=== PATIENT | male | born 2000 | race Hispanic/Latino ===

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

== ENCOUNTER 2021-05-05 15:52 | Emergency (ER) | payer MEDICAID, OTHER ==
[~2021-05-05] VITALS: Ht 177.8 cm; Wt 104.3 kg
[2021-05-05] MEDS ORDERED: 0.9%NACL 1000ML 1,000 ML IV ONE (16:00)
[2021-05-05 16:43] LABS: HEMATOCRIT 48.9 % (42-54); MEAN CORPUSCULAR HEMOGLOBIN 29.4 pg (27.0-33.0); MEAN CORPUSCULAR HGB CONC 33.9 g/dL (32.0-36.0); MEAN CORPUSCULAR VOLUME 86.5 fL (80-100); PLATELET COUNT (AUTO) 252 K/uL (130-400); RED BLOOD CELL COUNT(AUTO) 5.65 MIL/uL (4.50-6.20); RED CELL DISTRIBUTION WIDTH 12.1 % (11.0-15.5); WHITE BLOOD COUNT (AUTO) 12.9 K/uL (4.8-10.8)
[2021-05-05 16:59] LABS: CREATININE 1.1 mg/dL (0.5-1.5)
[2021-05-05 17:04] LABS: BILIRUBIN,TOTAL 1.5 mg/dL (0.2-1.0); TOTAL PROTEIN, SERUM 8.2 g/dL (6.0-8.3)
[2021-05-05 17:09] LABS: BAND NEUTROPHILS % (MANUAL) 18 % (0-2); LYMPHOCYTES % (MANUAL) 11 % (22-44); MAN.DIFF COMMENT-IMPRESSION MANUAL DIFFERENTIAL; REACTIVE LYMPHOCYTES 6 % (0-0); SEGMENTED NEUTROPHILS % 65 % (40-70)
[2021-05-05 17:16] LABS: APPEARANCE,URINE SL CLOUDY (CLEAR); BILIRUBIN,URINE MODERATE (NEGATIVE); COLOR,URINE ORANGE (YELLOW); GLUCOSE, URINE (UA) NEGATIVE (NEGATIVE); KETONES,URINE 5 mg/dL (NEGATIVE); LEUKOCYTE ESTERASE ,URINE NEGATIVE (NEGATIVE); NITRATE,URINE POSITIVE (NEGATIVE); OCCULT BLOOD,URINE NEGATIVE (NEGATIVE); PROTEIN,URINE 30 mg/dL (NEGATIVE)
[2021-05-05 17:24] LABS: AMPHET/METH SCREEN,URINE NEGATIVE (NEGATIVE); BARBITURATE SCREEN, URINE NEGATIVE (NEGATIVE); BENZODIAZEPINES SCREEN,URINE NEGATIVE (NEGATIVE); CANNABINOID SCREEN,URINE POSITIVE (NEGATIVE); COCAINE SCREEN,URINE NEGATIVE (NEGATIVE); OPIATE SCREEN,URINE NEGATIVE (NEGATIVE); PHENCYCLIDINE SCREEN,URINE NEGATIVE (NEGATIVE)
[2021-05-05 17:26] LABS: BACTERIA,URINE Few /HPF (None Seen); RBC,URINE 0-1 /HPF (0-1); WBC,URINE 0-1 /HPF (0-1)
[2021-05-05 17:27] LABS: HYALINE CASTS, URINE 0-1 /LPF (0-1 /LPF); MUCUS,URINE Rare LPF (None Seen); SQUAMOUS EPITHELIAL CELL,UR Rare /HPF (0-2)
[2021-05-05] MEDS ORDERED: IOHEXOL-350 75 ML VIAL IV ONE (17:27)
[2021-05-05 17:28] LABS: AMYLASE 44 U/L (25-115); LIPASE 74 U/L (114-286)
[2021-05-05] MEDS ORDERED: ACETAMINOPHEN 500 MG TABLET ONE (17:51)
[2021-05-05] MEDS ORDERED: ACETAMINOPHEN 500 MG TABLET PO ONE (18:00)
[2021-05-05] MEDS ORDERED: FAMO20TA8 PO (18:57)
[2021-05-05] MEDS ORDERED: ONDA4TAB10 PO (18:57)
[2021-05-05 19:00] VITALS: BP 125/69
== END 2021-05-05 19:16 | disposition home or self-care (01) ==
LOC: EDH 15:52
DX: K52.9 Noninfective gastroenteritis and colitis, unspecified (principal); F12.10 Cannabis abuse, uncomplicated
CPT/HCPCS: 36415; 74177; 76705; 80053; 80305; 81001; 82010; 82150; 82948; 83690; 85025; 87088; 93005; 96360; 99285; J7030; Q9967

== ENCOUNTER 2021-09-02 02:31 | Emergency (ER) | payer OTHER ==
[~2021-09-02] VITALS: Ht 175.3 cm; Wt 102.5 kg
[~2021-09-02 02:31] MED LIST: FAMO20TA8 PO; ONDA4TAB10 PO
[2021-09-02 02:33] VITALS: BP 146/88
[2021-09-02] MEDS ORDERED: CIPOTIC OT (04:17)
[2021-09-02] MEDS ORDERED: IBUP-2070 PO (04:17)
[2021-09-02] MEDS ORDERED: IBUPROFEN 600 MG TABLET PO ONE (04:30)
[2021-09-02] MEDS ORDERED: CIPROFLOXACIN HCL 0.2%/HYDROCORT 1% 10 ML OTIC SUSP OTIC SCH (04:30)
== END 2021-09-02 04:28 | disposition home or self-care (01) ==
LOC: EDH 02:31
DX: H60.93 Unspecified otitis externa, bilateral (principal); H60.333 Swimmer's ear, bilateral; Z79.899 Other long term (current) drug therapy